=== PATIENT | male | born 1980 | race Caucasian/White ===

== ENCOUNTER 2020-04-04 00:56 | Emergency (ER) | payer OTHER ==
[~2020-04-04] VITALS: Ht 208.3 cm; Wt 129.0 kg
--- NOTE | 2020-04-04 01:05 | PHYS DOC ---
Past History Past Medical History: Constipation Past Medical History History of recurrent diverticulitis (LUIS ALBERTO ROWELL MD) Past Surgical History: Colectomy Past Surgical History Partial removal of colon and sigmoid due to diverticulitis and 2016. (LUIS ALBERTO ROWELL MD) General Adult HPI: HPI: ".. I got abd. pain... It started really bad tonight after eating leftover turkey at 1800 hrs.,,,,I ve had bad diverticulitis in the past and even required removal of the lower third of my colon... My mother has the same thing..." ". 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 There is some localization to just above and left of his prior abdomen surgery scar. There is rebound pain to this area. The pain somewhat acute onset tonight after eating leftover turkey at 1800 hrs. patient states he did have a stool today and passed gas. Patient has history of recurrent episodes of diverticulitis which eventually required removal of the lower third of his colon. Diverticulitis reportedly inherited his diverticular disease from his mother. Patient denies any trauma. No recent travel outside the [place] area. No recent overseas deployments. No specific ill contacts. Is up-to-date with vaccinations. Patient currently rating his pain as 9-10 out of 10. No history of renal stones with him or family members. (LUIS ALBERTO ROWELL MD) Review of Systems: Review of Systems: Constitutional: Denies fever or chills Eyes: Denies change in visual acuity HENT: Denies nasal congestion or sore throat Respiratory: Denies cough or shortness of breath Cardiovascular: Denies chest pain or edema GI: Complains of severe abdominal pain, nausea. Denies, vomiting, bloody stools or diarrhea : Denies dysuria Musculoskeletal: Denies back pain or joint pain Integument: Denies rash Neurologic: Denies headache, focal weakness or sensory changes Endocrine: Denies polyuria or polydipsia Lymphatic: Denies swollen glands Psychiatric: Denies depression or anxiety (LUIS ALBERTO ROWELL MD) Family History: Family History: Mother has severe history of diverticulitis (LUIS ALBERTO ROWELL MD) Current Medications: Current Meds: See nursing for home meds (LUIS ALBERTO ROWELL MD) Allergies: Allergies: No known drug allergies (LUIS ALBERTO ROWELL MD) Physical Exam: PE: Constitutional: Well developed, well nourished, in acute distress, non-toxic cassie earance. Six foot ten inches. HENT: Normocephalic, atraumatic, bilateral external ears normal, oropharynx dry, no oral exudates, nose normal. [] Eyes: PERRLA, EOMI, conjunctiva normal, no discharge. [] Neck: Normal range of motion, no tenderness, supple, no stridor. [] Cardiovascular:Heart rate regular rhythm, no murmur [] Lungs & Thorax: Bilateral breath sounds equal apex on auscultation [] Abdomen: Bowel sounds increased, soft, generalized tenderness, distended, no masses, no pulsatile masses. Some rebound to left mid abdomen. Old surgery scars. Skin: Warm, dry, no erythema, no rash. [] Back: No tenderness, very mild bilateral CVA tenderness. [] Extremities: No tenderness, no cyanosis, no clubbing, ROM intact, no edema. No true psoas localization. Neurologic: Alert and oriented X 3, normal motor function, normal sensory function, no focal deficits noted. [] Psychologic: Affect anxious , judgement normal, mood normal. [] (LUIS ALBERTO ROWELL MD) EKG: EKG: [] (LUIS ALBERTO ROWELL MD) Radiology/Procedures: Radiology/Procedures: [place] [address] IMAGING REPORT Signed PATIENT: EFFIE LOZACOUNT: [id number] : 1980 LOCATION: ER AGE: 39 SEX: M EXAM STATUS: REG ER ORD. PHYSICIAN: LUIS ALBERTO ROWELL MD REASON: severe pain PROCEDURE: ACUTE ABDOMEN SERIES ACUTE ABDOMEN SERIES INDICATION: Reason: severe pain / Spl. Instructions: / History: . COMPARISON STUDY: None. FINDINGS: Lungs: Normal lung volume. No pulmonary mass or consolidation. The tracheobronchial tree and hilar structures are normal. Pleura: No pleural effusion or pneumothorax. Heart and Mediastinum: The cardiomediastinal silhouette is normal. The great vessels of the thorax are normal. Abdomen: Nonobstructive bowel gas pattern. Moderate colonic stool burden. IMPRESSION: 1. No focal airspace disease. 2. Nonobstructive bowel gas pattern. Moderate colonic stool burden. Electronically signed by: Alessandra Castillo MD (04/04/2020 2:16 AM) [facility] DICTATED AND SIGNED BY: ALESSANDRA CASTILLO MD DATE: 04/04/20215 CC: LUIS ALBERTO ROWELL MD; PCP,UNKNOWN ~MTH0 0 [][address] [address] IMAGING REPORT Signed PATIENT: EFFIE LOZAUNT: [id number] : 1980 LOCATION: ER AGE: 39 SEX: M EXAM STATUS: REG ER ORD. PHYSICIAN: LUIS ALBERTO ROWELL MD REASON: Severe abd. pain, hx. diverticulitis PROCEDURE: CT ABD PELV W/ORAL&IV CONTRAST CT ABD PELV W/ORAL IV CONTRAST History: Severe abd. pain, hx. diverticulitis Comparison: None. Technique: After administration of intravenous contrast, helical CT of the abdomen and pelvis was performed from the lung bases through the ischial tuberosities. Coronal and sagittal reconstructions were obtained. 75 mL of Omnipaque 300 were used. One or more of the following dose reduction techniques were utilized: Automated exposure control (AEC), Adjustment of mA and/or kV according to patient size, Use of iterative reconstruction technique such as ASiR, CT scan done according to ALARA and image gently/image wisely Abdomen Findings: The visualized lung bases are clear. The liver, gallbladder, pancreas, spleen, and bilateral adrenal glands are normal. Symmetric renal enhancement. There is no focal renal mass. There is no hydronephrosis. Multiple fluid-filled mildly dilated loops of small bowel, with decompressed distal small bowel. Colonic diverticulosis. Sigmoid colon anastomosis. There is no free fluid. There is no mesenteric or retroperitoneal adenopathy. The abdominal aorta is normal in caliber. Pelvis Findings: Urinary bladder is normal. No pelvic free fluid. There is no pelvic or inguinal adenopathy. Degenerative changes of the spine. Metallic fragment in the right hemiabdomen. IMPRESSION: 1. Multiple mildly dilated loops of small bowel with decompressed distal small bowel, concerning for obstruction. 2. Chronic diverticulosis without evidence of acute diverticulitis. Electronically signed by: Alessandra Castillo MD (04/04/2020 6:41 AM) [facility] DICTATED AND SIGNED BY: ALESSANDRA CASTILLO MD DATE: 04/04/20 06 CC: LUIS ALBERTO ROWELL MD; PCP,UNKNOWN ~MTH0 0 (LUIS ALBERTO ROWELL MD) Heart Score: Risk Factors: Risk Factors: DM, Current or recent (<one month) smoker, HTN, HLP, family history of CAD, obesity. Risk Scores: Score 0 - 3: 2.5% MACE over next 6 weeks - Discharge Home Score 4 - 6: 20.3% MACE over next 6 weeks - Admit for Clinical Observation Score 7 - 10: 72.7% MACE over next 6 weeks - Early Invasive Strategies (LUIS ALBERTO ROWELL MD) Course & Med Decision Making: Course & Med Decision Making Pertinent Labs and Imaging studies reviewed. (See chart for details) Pt. checked out to Dr. Iyer at shift change. CT pending. She will make disposition of pt. Impression: 1. Abdomen pain 2. Ileus 3. Hx. of diverticulosis-( Hx. distal colon ectomy) [] (LUIS ALBERTO ROWELL MD) Course & Med Decision Making Assumed care of patient at checkout. At check out, CT was pending. CT shows SBO. NG was placed. Dr Van, surgeon at [place] was consulted. Will transfer to [place]. (SLIME IYER MD) Dragon Disclaimer: Dragon Disclaimer: This electronic medical record was generated, in whole or in part, using a voice recognition dictation system. (LUIS ALBERTO ROWELL MD) Departure Departure: Impression: Primary Impression: Small bowel obstruction Disposition: 02 DC/TRF OTHER SHORT TERM HOS Condition: STABLE Referrals: PCP,UNKNOWN (PCP) Dragon Disclaimer This chart was dictated in whole or in part using Voice Recognition software in a busy, high-work load, and often noisy Emergency Department environment. It may contain unintended and wholly unrecognized errors or omissions. (LUIS ALBERTO ROWELL MD) Dragon Disclaimer This chart was dictated in whole or in part using Voice Recognition software in a busy, high-work load, and often noisy Emergency Department environment. It may contain unintended and wholly unrecognized errors or omissions. (LUIS ALBERTO ROWELL MD) LUIS ALBERTO ROWELL MD Apr 04, 2020 01:05 SLIME IYER MD Apr 04, 2020 10:15
[2020-04-04] MEDS ORDERED: IV RINGERS SOLUTION,LACTATED 1,000 ML IV SCH (01:15)
[2020-04-04] MEDS ORDERED: ONDANSETRON PF 4 MG/2 ML VIAL. IVP ONE ×3 (01:15→09:15)
[2020-04-04] MEDS ORDERED: MORPHINE SULFATE 10 MG/ML SYRINGE. SQ ONE ×2 (01:15→04:15)
[2020-04-04] MEDS ORDERED: FAMOTIDINE 20 MG/2 ML VIAL IVP ONE (01:15)
[2020-04-04 01:50] LABS: BASO # 0.1 x10^3/uL (0.0-0.2); BASO % 1 % (0-3); EOS # 0.1 x10^3/uL (0.0-0.7); EOS % 1 % (0-3); HEMATOCRIT 50.3 % (39.0-53.0); HEMOGLOBIN 16.3 g/dL (13.0-17.5); LYMPH # 2.9 x10^3/uL (1.0-4.8); LYMPH % 30 % (24-48); MEAN CORPUSCULAR HEMOGLOBIN 28 pg (25-35); MEAN CORPUSCULAR HGB CONC 33 g/dL (31-37); MEAN CORPUSCULAR VOLUME 87 fL (79-100); MONO # 0.5 x10^3/uL (0.0-1.1); MONO % 5 % (0-9); NEUT # 6.1 x10^3uL (1.8-7.7); NEUT % 63 % (31-73); PLATELET COUNT 222 x10^3/uL (140-400); RED BLOOD COUNT 5.77 x10^6/uL (4.30-5.70); RED CELL DISTRIBUTION WIDTH 13.8 % (11.5-14.5); WHITE BLOOD COUNT 9.7 x10^3/uL (4.0-11.0)
[2020-04-04 01:54] LABS: CALCIUM 9.1 mg/dL (8.5-10.1); GFR 83.2; POTASSIUM 3.7 mmol/L (3.5-5.1)
[2020-04-04 01:57] LABS: BARBITURATES NEG (NEG); BENZODIAZEPINES NEG (NEG); CANNABINOIDS NEG (NEG); COCAINE NEG (NEG); METHADONE NEG (NEG); OPIATES NEG (NEG); PHENCYCLIDINE NEG (NEG)
[2020-04-04 01:58] LABS: AMPHETAMINE/METHAMPHETAMINE NEG (NEG)
[2020-04-04 02:00] LABS: BILIRUBIN,URINE NEG (NEG); CLARITY,URINE HAZY; COLOR,URINE YELLOW; GLUCOSE,URINE NEG (NEG); NITRITE,URINE NEG (NEG); UROBILINOGEN,URINE 0.2 mg/dL (0.2 mg/dL)
[2020-04-04 02:01] LABS: ALBUMIN 4.4 g/dL (3.4-5.0); BACTERIA,URINE FEW /HPF (0-FEW); DIRECT BILIRUBIN 0.1 mg/dL (0.0-0.2); SQUAMOUS EPITHELIAL CELL,UR OCC /LPF; TOTAL BILIRUBIN 0.3 mg/dL (0.2-1.0); TOTAL PROTEIN 8.2 g/dL (6.4-8.2)
[2020-04-04] MEDS ORDERED: IV NORMAL SALINE 50ML 50 ML ONE (02:14)
[2020-04-04] MEDS ORDERED: cefTRIAXone SODIUM 1 GM VIAL ONE (02:15)
--- NOTE | 2020-04-04 02:19 | RAD ---
ACUTE ABDOMEN SERIES INDICATION: Reason: severe pain / Spl. Instructions: / History: . COMPARISON STUDY: None. FINDINGS: Lungs: Normal lung volume. No pulmonary mass or consolidation. The tracheobronchial tree and hilar structures are normal. Pleura: No pleural effusion or pneumothorax. Heart and Mediastinum: The cardiomediastinal silhouette is normal. The great vessels of the thorax are normal. Abdomen: Nonobstructive bowel gas pattern. Moderate colonic stool burden. IMPRESSION: 1. No focal airspace disease. 2. Nonobstructive bowel gas pattern. Moderate colonic stool burden. Electronically signed by: Ahsan Condon MD (04/04/2020 2:16 AM) [facility]
[2020-04-04] MEDS ORDERED: IOHEXOL 240 MG/ML 50ML VIAL. PO ONE (05:15)
[2020-04-04] MEDS ORDERED: CONTRAST GIVEN. MC PRN (05:15)
[2020-04-04] MEDS ORDERED: IOHEXOL 300 MG/ML 75 ML VIAL. IV ONE (05:15)
--- NOTE | 2020-04-04 06:44 | RAD ---
CT ABD PELV W/ORAL IV CONTRAST History: Severe abd. pain, hx. diverticulitis Comparison: None. Technique: After administration of intravenous contrast, helical CT of the abdomen and pelvis was performed from the lung bases through the ischial tuberosities. Coronal and sagittal reconstructions were obtained. 75 mL of Omnipaque 300 were used. One or more of the following dose reduction techniques were utilized: Automated exposure control (AEC), Adjustment of mA and/or kV according to patient size, Use of iterative reconstruction technique such as ASiR, CT scan done according to ALARA and image gently/image wisely Abdomen Findings: The visualized lung bases are clear. The liver, gallbladder, pancreas, spleen, and bilateral adrenal glands are normal. Symmetric renal enhancement. There is no focal renal mass. There is no hydronephrosis. Multiple fluid-filled mildly dilated loops of small bowel, with decompressed distal small bowel. Colonic diverticulosis. Sigmoid colon anastomosis. There is no free fluid. There is no mesenteric or retroperitoneal adenopathy. The abdominal aorta is normal in caliber. Pelvis Findings: Urinary bladder is normal. No pelvic free fluid. There is no pelvic or inguinal adenopathy. Degenerative changes of the spine. Metallic fragment in the right hemiabdomen. IMPRESSION: 1. Multiple mildly dilated loops of small bowel with decompressed distal small bowel, concerning for obstruction. 2. Chronic diverticulosis without evidence of acute diverticulitis. Electronically signed by: Ahsan Condon MD (04/04/2020 6:41 AM) [facility]
[2020-04-04] MEDS ORDERED: BENZOCAINE ONE 20% MUCOSAL SPRAY. MM (08:30)
[2020-04-04] MEDS ORDERED: LIDOCAINE 2% TOPICAL JELLY 5GM TUBE. TP ONE (08:56)
[2020-04-04] MEDS ORDERED: LIDOCAINE 2% JELLY 10ML IN APPLICATOR. ONE (08:57)
[2020-04-04] MEDS ORDERED: LIDOCAINE 1% Multi-Dose 20 ML VIAL. ONE (09:02)
[2020-04-04] MEDS ORDERED: MORPHINE SULFATE 4 MG/ML DISP.SYRIN. IV ONE (09:15)
[2020-04-04] MEDS ORDERED: LIDOCAINE 2% VISCOUS 15 ML SOLUTION. ONE (09:23)
[2020-04-04] MEDS ORDERED: LIDOCAINE 2% VISCOUS 15 ML SOLUTION. SWSW ONE (09:45)
--- NOTE | 2020-04-04 10:01 | RAD ---
INDICATION: Reason: POST NG / Spl. Instructions: / History: COMPARISON: CT from April 04 06/13/2019 IMPRESSION: Chest and abdomen: 2 views obtained. Enteric tube is seen coursing below the diaphragm with tip at the left upper quadrant of the abdomen within the expected location of the stomach. There is some excreted contrast at the kidneys. Mild hazy opacities at the lung bases. Could be secondary to atelectasis given the location unless the patient is having symptoms of infection. Within the right perihilar region there is a nodular opacity measuring approximately 14 mm. Could be from overlap of structures but a region of nodular consolidation or pulmonary nodule is not excluded and a follow-up could be obtained to ensure that this does not persist. Air-filled dilated loops of bowel are seen at the partially visualized abdomen which again could be from obstruction. Electronically signed by: Rory Garcia MD (04/04/2020 9:59 AM) [id number]
[2020-04-04] MEDS ORDERED: LORazepam 1 MG TABLET PO ONE (10:15)
[2020-04-04 11:00] VITALS: BP 123/65
== END 2020-04-04 13:15 | disposition short-term general hospital (02) ==
LOC: ER 00:56
DX: K56.609 Unspecified intestinal obstruction, unspecified as to partial versus complete obstruction (principal); K56.7 Ileus, unspecified; Z90.49 Acquired absence of other specified parts of digestive tract
CPT/HCPCS: 36415; 71045; 74022; 74177; 80048; 80076; 80307; 81001; 82150; 83690; 85025; 85610; 85730; 87086; 96365; 96367; 96372; 96375; 96376; 99285; J0696; J2270; J2405; J3490; J7120; Q9966; Q9967

== ENCOUNTER 2020-08-17 12:10 | Emergency (ER) | payer OTHER ==
[~2020-08-17] VITALS: Ht 208.3 cm; Wt 129.0 kg
[2020-08-17] MEDS ORDERED: METOCLOPRAMIDE HCL 10 MG/2 ML VIAL. ONE (12:28)
[2020-08-17] MEDS ORDERED: KETOROLAC 15 MG/ML VIAL. ONE (12:28)
[2020-08-17] MEDS ORDERED: KETOROLAC 15 MG/ML VIAL. IVP ONE (12:30)
[2020-08-17] MEDS ORDERED: IV NORMAL SALINE 1,000ML 1,000 ML IV ONE (12:30)
[2020-08-17] MEDS ORDERED: METOCLOPRAMIDE HCL 10 MG/2 ML VIAL. IVP ONE (12:30)
--- NOTE | 2020-08-17 12:37 | PHYS DOC ---
Past History Past Medical History: Constipation (AYESHA NICHOLAS APRN) Past Surgical History: Colectomy Additional Past Surgical Histo: sigmoid colon resection (AYESHA NICHOLAS APRN) Alcohol Use: Heavy (AYESHA NICHOLAS APRN) General Adult HPI: HPI: Patient is a 39 year old male who presents with left flank sharp shooting pain that wraps around into the groin area since this morning. He states that he has been able to urinate without problem. He does not see any blood in his urine. He is having nausea but no vomiting. He denies fever, chest pain, shortness of breath, vomiting, diarrhea, constipation, dizziness, headache, injury. Patient has a history of constipation and colectomy. (AYESHA NICHOLAS APRN) Review of Systems: Review of Systems: Constitutional: Denies fever or chills Eyes: Denies change in visual acuity HENT: Denies nasal congestion or sore throat Respiratory: Denies cough or shortness of breath Cardiovascular: Denies chest pain or edema GI: + Right lower abdominal pain, +nausea, denies vomiting, bloody stools or diarrhea : Denies dysuria Musculoskeletal: Right flank back pain or denies joint pain Integument: Denies rash Neurologic: Denies headache, focal weakness or sensory changes Endocrine: Denies polyuria or polydipsia Lymphatic: Denies swollen glands Psychiatric: Denies depression or anxiety (AYESHA NICHOLAS APRN) Current Medications: Current Meds: Current Medications Medications (Trade) Dose Ordered Sig/Karl Start Time Stop Time Status Last Admin Dose Admin Fentanyl Citrate (Fentanyl 2ml Vial) 50 mcg 1X ONCE 08/17/20 12:30 08/17/20 12:31 UNV Ketorolac Tromethamine (Toradol 15mg Vial) 15 mg 1X ONCE 08/17/20 12:30 08/17/20 12:31 UNV Metoclopramide HCl (Reglan Vial) 10 mg 1X ONCE 08/17/20 12:30 08/17/20 12:31 UNV Sodium Chloride 1,000 ml @ 1,000 mls/hr 1X ONCE 08/17/20 12:30 08/17/20 13:29 UNV (AYESHA NICHOLAS APRN) Allergies: Allergies: Allergies Coded Allergies Type Severity Reaction Last Updated Verified No Known Drug Allergies 04/04/20 No (AYESHA NICHOLAS APRN) Physical Exam: PE: Constitutional: Well developed, well nourished, no acute distress, non-toxic appearance. [] HENT: Normocephalic, atraumatic, bilateral external ears normal, oropharynx moist, no oral exudates, nose normal. [] Eyes: PERRLA, EOMI, conjunctiva normal, no discharge. [] Neck: Normal range of motion, no tenderness, supple, no stridor. [] Cardiovascular:Heart rate regular rhythm, no murmur [] Lungs & Thorax: Bilateral breath sounds clear to auscultation [] Abdomen: Bowel sounds normal, soft, no tenderness, no masses, no pulsatile masses. [] Skin: Warm, dry, no erythema, no rash. [] Back: No tenderness, no CVA tenderness. [] Extremities: No tenderness, no cyanosis, no clubbing, ROM intact, no edema. [] Neurologic: Alert and oriented X 3, normal motor function, normal sensory func tion, no focal deficits noted. [] Psychologic: Affect normal, judgement normal, mood normal. Normal physical exam [] (AYESHA NICHOLAS APRN) EKG: EK and read by Dr. Cifuentes is sinus rhythm and no STEMI [] (AYESHA NICHOLAS APRN) Radiology/Procedures: Radiology/Procedures: [] Impressions: [place] [address] IMAGING REPORT Signed PATIENT: EFFIE LOZACOUNT: [id number] : 1980 LOCATION: ER AGE: 39 SEX: M EXAM STATUS: REG ER ORD. PHYSICIAN: AYESHA NICHOLAS APRN REASON: LT FLANK PAIN, VOMITING HX: SIGMOIDECTOMY PROCEDURE: CT ABDOMEN PELVIS WO CONTRAST Exam: CT abdomen/pelvis without intravenous contrast Indication: Left flank pain, vomiting, history of sigmoidectomy Comparison: CT abdomen 04/04/2020 Technique: Helical CT imaging performed of the abdomen and pelvis without the use of intravenous contrast. Sagittal and coronal reformats were obtained. One or more of the following individualized dose reduction techniques were utilized for this examination: 1. Automated exposure control 2. Adjustment of the mA and/or kV according to patient size 3. Use of iterative reconstruction technique. Findings: Inherently limited evaluation without intravenous contrast. Lower chest: Mild atelectasis. Heart is normal in size Liver: Normal noncontrast appearance of the liver. Gallbladder/Biliary Tree: Normal. Pancreas: Normal. Spleen: Normal. Adrenal Glands: Normal. Kidneys/Ureters/Bladder: There is mild to moderate left hydronephrosis and hydroureter due to a 1 cm calculus in the distal left ureter. Several additional tiny calculi are in the left kidney. There right kidney and right ureter are normal. Bladder is normal. Reproductive Organs: Normal. Stomach, small bowel, and colon: Stomach, small bowel, and appendix are normal. There is surgical changes of sigmoidectomy. There is diverticulosis in the descending and ascending colon. Vasculature: No aortic aneurysm. Lymph Nodes: No lymphadenopathy. Peritoneum and retroperitoneum: No free fluid or free air. Bones: No acute osseous abnormality. Mild degenerative disc disease in the lower lumbar spine. Impression: 1. Mild to moderate left hydroureteronephrosis due to a 1 cm calculus in the distal left ureter. Left nephrolithiasis. 2. Surgical changes of sigmoidectomy. 3. Diverticulosis in the ascending and descending colon. Electronically signed by: Maday Mcclendon MD (08/17/2020 1:12 PM) [id number] DICTATED AND SIGNED BY: MADAY MCCLENDON MD DATE: 08/17/20 1259 CC: AYESHA NICHOLAS APRN; EMERGENCY,DEPARTMENT; PCP,UNKNOWN ~MTH0 0 (AYESHA NICHOLAS APRN) Heart Score: C/O Chest Pain: No Risk Factors: Risk Factors: DM, Current or recent (<one month) smoker, HTN, HLP, family history of CAD, obesity. Risk Scores: Score 0 - 3: 2.5% MACE over next 6 weeks - Discharge Home Score 4 - 6: 20.3% MACE over next 6 weeks - Admit for Clinical Observation Score 7 - 10: 72.7% MACE over next 6 weeks - Early Invasive Strategies (AYESHA NICHOLAS APRN) Course & Med Decision Making: Course & Med Decision Making Pertinent Labs and Imaging studies reviewed. (See chart for details) See HPI. Alert and oriented x4. Ambulatory with a steady gait. Speaks in full clear sentences. Skin pink warm and dry. No CVA tenderness. Abdomen is soft and nontender. Patient has a 1 cm left ureter stone. I have called and talked to transfer team of which patient states he wants to be transferred to for urology. Patient has been accepted by Dr Mckeon and they state to keep the patient n.p.o. because irritates him for stenting. Patient also has a potassium of 2.7. The urologist stated to give him that IV. Patient will be transferred by EMS. [] (AYESHA NICHOLAS APRN) Dragon Disclaimer: Dragon Disclaimer: This electronic medical record was generated, in whole or in part, using a voice recognition dictation system. (AYESHA NICHOLAS APRN) Departure Departure: Impression: Primary Impression: Kidney stone on left side Additional Impression: Hypokalemia Disposition: 02 SHORT TERM HOSPITAL Condition: STABLE () Referrals: PCP,UNKNOWN (PCP) Attending Signature Attending Signature I have reviewed the PA/CUSTOM BIKE BUILDER's note and plan of care. I was available for consult ation as needed during the patient's visit in the emergency department. I agree with the clinical impression, plan, and disposition. (MING CIFUENTES DO) AYESHA NICHOLAS APRN Aug 17, 2020 12:37 MING CIFUENTES DO Aug 18, 2020 00:35
[2020-08-17 13:01] LABS: BASO % 1 % (0-3); EOS # 0.1 x10^3/uL (0.0-0.7); EOS % 1 % (0-3); HEMATOCRIT 45.1 % (39.0-53.0); HEMOGLOBIN 15.1 g/dL (13.0-17.5); LYMPH # 3.3 x10^3/uL (1.0-4.8); LYMPH % 52 % (24-48); MEAN CORPUSCULAR HEMOGLOBIN 29 pg (25-35); MEAN CORPUSCULAR HGB CONC 34 g/dL (31-37); MEAN CORPUSCULAR VOLUME 86 fL (79-100); MONO # 0.4 x10^3/uL (0.0-1.1); MONO % 7 % (0-9); NEUT # 2.5 x10^3uL (1.8-7.7); NEUT % 39 % (31-73); PLATELET COUNT 224 x10^3/uL (140-400); RED BLOOD COUNT 5.25 x10^6/uL (4.30-5.70); RED CELL DISTRIBUTION WIDTH 13.5 % (11.5-14.5); WHITE BLOOD COUNT 6.4 x10^3/uL (4.0-11.0)
--- NOTE | 2020-08-17 13:07 | EKG ---
[address] [address] Test Date: 2020-08-17 Test Time: 12:53:56 Pat Name: EFFIE LOZA Department: Room: Gender: M Ese Teacher: JADEN : 1980 Requested By: AYESHA NICHOLAS Order Number: [id number] Reading MD: Measurements Intervals [place] Rate: 61 P: 40 CT: 192 QRS: 28 QRSD: 86 T: 26 QT: 420 QTc: 424 Interpretive Statements SINUS RHYTHM R-S TRANSITION ZONE IN V LEADS DISPLACED TO THE RIGHT NO SPECIFIC ECG ABNORMALITIES RI6.02 No previous ECG available for comparison
--- NOTE | 2020-08-17 13:14 | RAD ---
Exam: CT abdomen/pelvis without intravenous contrast Indication: Left flank pain, vomiting, history of sigmoidectomy Comparison: CT abdomen 04/04/2020 Technique: Helical CT imaging performed of the abdomen and pelvis without the use of intravenous cont rast. Sagittal and coronal reformats were obtained. One or more of the following individualized dose reduction techniques were utilized for this examinat ion: 1. Automated exposure control 2. Adjustment of the mA and/or kV according to patient size 3. Use of iterative reconstruction technique. Findings: Inherently limited evaluation without intravenous contrast. Lower chest: Mild atelectasis. Heart is normal in size Liver: Normal noncontrast appearance of the liver. Gallbladder/Biliary Tree: Normal. Pancreas: Normal. Spleen: Normal. Adrenal Glands: Normal. Kidneys/Ureters/Bladder: There is mild to moderate left hydronephrosis and hydroureter due to a 1 cm calculus in the distal left ureter. Several additional tiny calculi are in the left kidney. There rig ht kidney and right ureter are normal. Bladder is normal. Reproductive Organs: Normal. Stomach, small bowel, and colon: Stomach, small bowel, and appendix are normal. There is surgical ruben nges of sigmoidectomy. There is diverticulosis in the descending and ascending colon. Vasculature: No aortic aneurysm. Lymph Nodes: No lymphadenopathy. Peritoneum and retroperitoneum: No free fluid or free air. Bones: No acute osseous abnormality. Mild degenerative disc disease in the lower lumbar spine. Impression: 1. Mild to moderate left hydroureteronephrosis due to a 1 cm calculus in the distal left ureter. Lef t nephrolithiasis. 2. Surgical changes of sigmoidectomy. 3. Diverticulosis in the ascending and descending colon. Electronically signed by: Maday Mcclendon MD (08/17/2020 1:12 PM) [id number]
[2020-08-17 13:22] LABS: ALBUMIN 4.4 g/dL (3.4-5.0); ALBUMIN/GLOBULIN RATIO 1.2 (1.0-1.7); CALCIUM 9.2 mg/dL (8.5-10.1); GFR 83.2; TOTAL BILIRUBIN 0.4 mg/dL (0.2-1.0)
[2020-08-17 13:29] LABS: POTASSIUM 2.7 mmol/L (3.5-5.1)
[2020-08-17] MEDS ORDERED: POTASSIUM CL 40MEQ IN 0.9%NACL 1,000 ML IV ONE ×3 (14:39→15:00)
[2020-08-17 14:45] LABS: BILIRUBIN,URINE NEG (NEG); CLARITY,URINE CLEAR; COLOR,URINE AMBER; GLUCOSE,URINE NEG (NEG)
[2020-08-17] MEDS ORDERED: POTASSIUM CHLORIDE 20MEQ 100 ML IV SCH (14:45)
[2020-08-17 14:46] LABS: BACTERIA,URINE 0 /HPF (0-FEW); NITRITE,URINE NEG (NEG); UROBILINOGEN,URINE 0.2 mg/dL (0.2 mg/dL); WBC,URINE 0 /HPF (0-4)
[2020-08-17 16:10] VITALS: BP 116/71
== END 2020-08-17 16:10 | disposition short-term general hospital (02) ==
LOC: ER 12:10
DX: N13.2 Hydronephrosis with renal and ureteral calculous obstruction (principal); E87.6 Hypokalemia; Z90.49 Acquired absence of other specified parts of digestive tract; Z20.822 Contact with and (suspected) exposure to COVID-19
CPT/HCPCS: 36415; 74176; 80053; 81001; 83690; 83735; 85025; 87426; 93005; 96361; 96365; 96375; 96376; 99285; C9803; J1885; J2765; J3010; J7030; U0003; U0005